=== PATIENT | female | born 1965 | race Caucasian/White ===

== ENCOUNTER → 2020-04-22 | Outpatient (CLI) | payer BC ==
[~2020-04-22] MED LIST: ADVIL PO; B-1100 M1 PO; CALGLU500 PO; CHLO25 PO; ECHINACEA PO; EMERGEN C PO; IBUP400 PO; OMEGA-3 PO; SPIR25 PO; VITAMIN PO; [UNRECOGNIZED DRUG - OTHER] PO; [UNRECOGNIZED DRUG - OTHER] PO
[2020-04-22 15:25] LABS: BASOPHILS ABSOLUTE AUTO 0.06 K/mm3 (0.00-0.23); BASOPHILS PERCENT AUTO 1 % (0-2); EOSINOPHILS ABSOLUTE AUTO 0.08 K/mm3 (0.00-0.68); EOSINOPHILS PERCENT AUTO 2 % (0-6); Hematocrit 33.2 % (33.0-51.0); Hemoglobin 11.3 g/dL (11.5-16.0); IMMATURE GRAN ABSOLUTE AUTO 0.02 K/mm3 (0.00-0.10); IMMATURE GRAN PERCENT AUTO 0 % (0-1); LYMPHOCYTES ABSOLUTE AUTO 0.57 K/mm3 (0.84-5.20); LYMPHOCYTES PERCENT AUTO 12 % (21-46); MONOCYTES ABSOLUTE AUTO 0.41 K/mm3 (0.16-1.47); MONOCYTES PERCENT AUTO 9 % (4-13); Mean Corpuscular HGB 31.9 pg (26.0-34.0); Mean Corpuscular Volume 94 fL (80-100); Mean Platelet Volume 10.5 fL (9.1-12.4); NEUTROPHILS ABSOLUTE AUTO 3.45 K/mm3 (1.96-9.15); NEUTROPHILS PERCENT AUTO 75 % (41-73); Platelet Count 112 K/mm3 (150-400); RDW Coefficient Variation 15.9 % (11.7-14.2); RDW Standard Deviation 54.8 fL (35.1-46.3); Red Blood Cell Count 3.54 M/mm3 (3.80-5.20); White Blood Cell Count 4.59 K/mm3 (4.00-11.30)
[2020-04-22 16:05] LABS: Alanine Aminotransfer (ALT/SGP 61 U/L (12-78); Albumin, Blood 2.7 g/dL (3.4-5.0); Albumin/Globulin Ratio 0.6 (0.8-1.8); Alk Phos 350 U/L (50-136); Anion Gap 6 mmol/L (6-16); Aspartate Aminotrans (AST/SGOT 372 U/L (12-37); Bilirubin, Total 4.3 mg/dL (0.1-1.0); Blood Urea Nitrogen 2 mg/dL (8-24); Bun/Creatinine Ratio 6.9 (12.0-20.0); CO2, Blood 28 mmol/L (21-32); Calcium, Blood 8.2 mg/dL (8.5-10.1); Chloride, Blood 96 mmol/L (98-108); Creatinine, Blood 0.29 mg/dL (0.40-1.00); Globulin, Blood 4.8 g/dL (2.2-4.0); Glomerular Filtration Rate >60 (60-); Glucose, Blood 80 mg/dL (70-99); Potassium, Blood 3.8 mmol/L (3.5-5.5); Sodium, Blood 130 mmol/L (136-145); Total Protein, Blood 7.5 g/dL (6.4-8.2)
== END | disposition home or self-care (01) ==
LOC: LAB 09:50 → LAB SHORT 09:50
PROVIDERS: Hospitalist
DX: K70.31 Alcoholic cirrhosis of liver with ascites (principal)
CPT/HCPCS: 80053; 85025

== ENCOUNTER 2020-05-09 14:23 | Emergency (ER) | payer BC ==
[~2020-05-09] VITALS: Ht 160 cm; Wt 53.5 kg
[~2020-05-09 14:23] MED LIST changes: -B-1100 M1 PO; -CHLO25 PO; -SPIR25 PO
== END 2020-05-09 16:19 | disposition home or self-care (01) ==
LOC: ER 14:23
DX: R18.8 Other ascites (principal); T81.89XA Other complications of procedures, not elsewhere classified, initial encounter; F17.200 Nicotine dependence, unspecified, uncomplicated
CPT/HCPCS: 99283

== ENCOUNTER 2020-06-01 11:17 | Inpatient (IN) | payer BC ==
[~2020-06-01] VITALS: Ht 160 cm; Wt 61.0 kg
[2020-06-01 11:53] LABS: BASOPHILS ABSOLUTE AUTO 0.01 K/mm3 (0.00-0.23); BASOPHILS PERCENT AUTO 0 % (0-2); EOSINOPHILS ABSOLUTE AUTO 0.01 K/mm3 (0.00-0.68); EOSINOPHILS PERCENT AUTO 0 % (0-6); Hematocrit 34.3 % (33.0-51.0); Hemoglobin 12.6 g/dL (11.5-16.0); IMMATURE GRAN ABSOLUTE AUTO 0.04 K/mm3 (0.00-0.10); IMMATURE GRAN PERCENT AUTO 0 % (0-1); LYMPHOCYTES ABSOLUTE AUTO 0.85 K/mm3 (0.84-5.20); LYMPHOCYTES PERCENT AUTO 9 % (21-46); MONOCYTES ABSOLUTE AUTO 0.75 K/mm3 (0.16-1.47); MONOCYTES PERCENT AUTO 8 % (4-13); Mean Corpuscular HGB 33.2 pg (26.0-34.0); Mean Corpuscular HGB Conc 36.7 g/dL (31.5-36.5); Mean Corpuscular Volume 91 fL (80-100); Mean Platelet Volume 8.9 fL (9.1-12.4); NEUTROPHILS ABSOLUTE AUTO 7.38 K/mm3 (1.96-9.15); NEUTROPHILS PERCENT AUTO 82 % (41-73); Platelet Count 268 K/mm3 (150-400); RDW Coefficient Variation 14.2 % (11.7-14.2); RDW Standard Deviation 46.6 fL (35.1-46.3); Red Blood Cell Count 3.79 M/mm3 (3.80-5.20); White Blood Cell Count 9.04 K/mm3 (4.00-11.30)
[2020-06-01 12:09] LABS: Alanine Aminotransfer (ALT/SGP 44 U/L (12-78); Albumin, Blood 2.4 g/dL (3.4-5.0); Albumin/Globulin Ratio 0.4 (0.8-1.8); Alk Phos 304 U/L (50-136); Anion Gap 13 mmol/L (6-16); Aspartate Aminotrans (AST/SGOT 221 U/L (12-37); Bilirubin, Total 4.8 mg/dL (0.1-1.0); Blood Urea Nitrogen 3 mg/dL (8-24); Bun/Creatinine Ratio 9.1 (12.0-20.0); CO2, Blood 19 mmol/L (21-32); Calcium, Blood 7.9 mg/dL (8.5-10.1); Chloride, Blood 81 mmol/L (98-108); Creatinine, Blood 0.33 mg/dL (0.40-1.00); Globulin, Blood 5.8 g/dL (2.2-4.0); Glomerular Filtration Rate >60 (60-); Glucose, Blood 63 mg/dL (70-99); Potassium, Blood 4.7 mmol/L (3.5-5.5); Sodium, Blood 113 mmol/L (136-145); Total Protein, Blood 8.2 g/dL (6.4-8.2)
[2020-06-01 12:32] LABS: Magnesium, Blood 1.9 mg/dL (1.6-2.4)
[2020-06-01 12:35] LABS: International Normalized Ratio 1.19; Prothrombin Time Results 12.6 Sec (9.7-11.5)
[2020-06-01 15:10] LABS: Base Excess Venous -3.7 mmol/L; Bicarbonate Venous 21.4 mmol/L (24.0-30.0); PCO2 Venous 32.5 mmHg (38-42); pH Blood Venous 7.42 (7.34-7.37)
[2020-06-01] MEDS ORDERED: SPIR25 PO (15:31)
[2020-06-01] MEDS ORDERED: CHLO25 PO (15:32)
[2020-06-01 17:07] LABS: Magnesium, Blood 2.4 mg/dL (1.6-2.4)
[2020-06-01 17:11] LABS: Potassium, Blood 4.8 mmol/L (3.5-5.5)
[2020-06-01 17:56] LABS: Source, Urine Catheter
[2020-06-01 18:01] LABS: Appearance, Urine Hazy (Clear); Blood, Urine Neg (Neg); Color, Urine Yellow (P-Yellow); Glucose Qualitative, Urine Neg (Neg); Ketones, Urine 3+ (Neg); Leukocyte Esterase, Urine Neg (Neg); Nitrite, Urine Neg (Neg); Protein, Urine 1+ (Neg); Urobilinogen, Urine 3+ (Normal)
[2020-06-01 18:14] LABS: Hematocrit 29.4 % (33.0-51.0)
[2020-06-01 18:14] LABS: Bilirubin, Urine 1+ (Neg)
[2020-06-01 18:20] LABS: White Blood Cells, Urine 0-2 /hpf (0-5)
[2020-06-01 18:21] LABS: Bacteria Few /hpf; Hyaline Casts 0-2 /lpf (0-2); Mucus Mod (0-Heavy); Red Blood Cells, Urine 0-2 /hpf (0-2); Squamous Epithelial Cells Few /hpf (Few)
[2020-06-01 18:22] LABS: U Amphetamine Screen Not Detected; U Barbituate Screen Not Detected; U Benzodiazapine Screen DETECTED; U Buprenorphine Screen Not Detected; U Cannabinoids Screen Not Detected; U Cocaine Screen Not Detected; U Methadone Screen Not Detected; U Methamphetamine Screen Not Detected; U Opiates Screen Not Detected; U Oxycodone Screen Not Detected; U Phencyclidine Screen Not Detected; U Propoxyphene Screen Not Detected
--- NOTE | 2020-06-01 18:52 | NUR ---
SHIFT SUMMARY RECIEVED PT FROM ED AT 1600, PT SEEMS SLIGHTLY OFF. SHE CAN ANSWER ALL ORIENTATION QUESTIONS BUT WILL MAKE SOME BIZARRE STATEMENTS. SODIUM LEVEL IS 112, AST IS 221 AND BNP IS 399. PT'S BLE +4 EDEMA, ABDOMEN IS DISTENDED AND TAUGHT. VSS, ROOM AIR AND RESTING COMFORTABLE IN BED WITH CALL LIGHT IN REACH.
--- NOTE | 2020-06-01 19:12 | NUR ---
ASSUMPTION OF CARE RECEIVED REPORT FROM BRADEN RN, ASSUMED CARE OF PATIENT. PATIENT SITTING UP IN BED ALERT, ANSWERS ORIENTATION QUESTIONS APPROPRIATELY BUT IS FORGETFUL AND NEEDS FREQUENT REMINDERS OF SITATUION. DENIED DISCOMFORTS OR NEEDS, VITALS STABLE. CALL LIGHT IN REACH.
[2020-06-01 22:22] LABS: Potassium, Blood 4.1 mmol/L (3.5-5.5)
--- NOTE | 2020-06-02 | NUR ---
REASSESSMENT NO ACUTE CHANGES FROM INITIAL ASSESSMENT. PATIENT DENIES NEEDS OR DISCOMFORTS. CALL LIGHT IN REACH.
--- NOTE | 2020-06-02 04:00 | NUR ---
REASSSESSMENT NO ACUTE CHANGES FROM PREVIOUS ASSESSMENT. VITALS STABLE. PATIENT DENIES NEEDS OR DISCOMFORTS. CALL LIGHT IN REACH.
[2020-06-02 04:15] LABS: BASOPHILS ABSOLUTE AUTO 0.01 K/mm3 (0.00-0.23); BASOPHILS PERCENT AUTO 0 % (0-2); EOSINOPHILS PERCENT AUTO 0 % (0-6); Hematocrit 27.2 % (33.0-51.0); Hemoglobin 10.2 g/dL (11.5-16.0); IMMATURE GRAN ABSOLUTE AUTO 0.04 K/mm3 (0.00-0.10); IMMATURE GRAN PERCENT AUTO 1 % (0-1); LYMPHOCYTES ABSOLUTE AUTO 0.68 K/mm3 (0.84-5.20); LYMPHOCYTES PERCENT AUTO 9 % (21-46); MONOCYTES ABSOLUTE AUTO 0.75 K/mm3 (0.16-1.47); MONOCYTES PERCENT AUTO 10 % (4-13); Mean Corpuscular HGB 33.3 pg (26.0-34.0); Mean Corpuscular HGB Conc 37.5 g/dL (31.5-36.5); Mean Corpuscular Volume 89 fL (80-100); Mean Platelet Volume 8.8 fL (9.1-12.4); NEUTROPHILS ABSOLUTE AUTO 6.35 K/mm3 (1.96-9.15); NEUTROPHILS PERCENT AUTO 81 % (41-73); Platelet Count 190 K/mm3 (150-400); RDW Coefficient Variation 13.8 % (11.7-14.2); RDW Standard Deviation 44.5 fL (35.1-46.3); Red Blood Cell Count 3.06 M/mm3 (3.80-5.20); White Blood Cell Count 7.83 K/mm3 (4.00-11.30)
[2020-06-02 04:53] LABS: Magnesium, Blood 1.8 mg/dL (1.6-2.4)
[2020-06-02 04:58] LABS: Alanine Aminotransfer (ALT/SGP 36 U/L (12-78); Albumin, Blood 1.9 g/dL (3.4-5.0); Albumin/Globulin Ratio 0.4 (0.8-1.8); Alk Phos 231 U/L (50-136); Anion Gap 14 mmol/L (6-16); Aspartate Aminotrans (AST/SGOT 176 U/L (12-37); Blood Urea Nitrogen 3 mg/dL (8-24); Bun/Creatinine Ratio 7.6 (12.0-20.0); CO2, Blood 20 mmol/L (21-32); Calcium, Blood 7.2 mg/dL (8.5-10.1); Chloride, Blood 84 mmol/L (98-108); Globulin, Blood 4.7 g/dL (2.2-4.0); Glomerular Filtration Rate >60 (60-); Glucose, Blood 56 mg/dL (70-99); Phosphorus, Blood 3.2 mg/dL (2.5-4.9); Potassium, Blood 3.8 mmol/L (3.5-5.5); Sodium, Blood 118 mmol/L (136-145); Total Protein, Blood 6.6 g/dL (6.4-8.2)
--- NOTE | 2020-06-02 06:03 | NUR ---
SHIFT SUMMARY NO ACUTE EVENTS OVER NIGHT. SODIUM TRENDED AND REPORTED TO DR. HOLLIS. NEW ORDERS RECEIVED AFTER AM SODIUM RESULT. DR. HOLLIS TO PATIENT'S BEDSIDE GIVING VERBAL ORDERS FOR MEDICATIONS AND LABS. PATIENT REMAINS A/O. VITALS STABLE. URINE OUTPUT ADEQUATE. PARACENTESIS SCHEDULED FOR TODAY. PATIENT EATING A SNACK PER MORNING GLUCOSE RESULT ON LAB DRAW. WILL CONTINUE TO MONITOR AND REPORT TO ONCOMING RN.
--- NOTE | 2020-06-02 07:14 | NUR ---
ASSUMED CARE PT RESTING IN BED WITH CALL LIGHT IN REACH. VSS OVERNIGHT, 1L FLUID RESTRICTION CONTINUES, SODIIUM 118. RECHECK DUE AT [address] HOLLIS WITH THE RESULTS. PARACENTESIS TO BE DONE THIS MORNING, DR HOLLIS ALREADY ROUNDED AND SPOKE TO THE PT.
[2020-06-02 12:34] LABS: Lactate Dehydrogenase, Body Fl 67 U/L
[2020-06-02 12:37] LABS: Potassium, Blood 3.6 mmol/L (3.5-5.5)
--- NOTE | 2020-06-02 14:46 | NUR ---
PT PUT ON O2 WHEN SHE IS SLEEPING. OXYGEN LEVEL DROPS TO HIGH 90'S. 2L NC PLACED AND THAT BRINGS HER SATS UP TO ACCEPTABLE LEVELS
--- NOTE | 2020-06-02 18:16 | NUR ---
SHIFT SUMMARY VSS THROUGHOUT SHIFT, AFBRILE. REQUIRING O2 WHEN SHE SLEEPS, SLIGHT JENNIFER. 4.5 LITERS TAKEN OFF WITH PARACENTESIS. HX OF LEAKING FROM SITE SO AN ABSORBANT PAD IS IN PLACE. GARCIA STILL IN PLACE WITH GOOD URINE OUTPUT. BUMEX AND POTASSIUM D/C'D AFTER SODIUM LEVEL CAME UP TO 127. LAST SODIUM 121. PT WAS ON 3% SALINE DRIP @ 30 FOR A BREIF TIME, BUT THAT WAS ALSO D/C'D. PT HAS TRANSFER ORDERS, WAITING FOR A BED. DR. MURPHY CAME AN UPDATED THE FLOR.
--- NOTE | 2020-06-02 18:42 | NUR ---
Spiritual care note: Sonia was welcoming of visit. She did not mention her liver disease. She admitted to me that she takes her prescibed medication once every three days instead of daily. She also states that she stopped taking all vitamins because "They make my fingers numb." She spoke mostly about her job at [employer]. She allowed me to pray for her and denied any concerns about her health. She plans on getting stronger and returning home to her regular routine. I will remain available.
--- NOTE | 2020-06-02 19:17 | NUR ---
ASSUMPTION OF CARE RECEIVED REPORT FROM BRADEN OLVERA. ASSUMED CARE OF PATIENT. WILL REVIEW ORDERS AND TREAT PRESCRIBED.
[2020-06-02 19:58] LABS: Automated BF WBC Count 0.068 K/mm3 (0-999); Body Fluid WBC Count 68 /mm3 (0-999)
[2020-06-02 19:59] LABS: Appearance, Body Fluid Clear (Clear); Color, Body Fluid Yellow (None-Yellow)
[2020-06-02 20:16] LABS: Albumin, Body Fluid 0.7 g/dL
[2020-06-02 20:17] LABS: Protein, Body Fluid 1.7 g/dL
[2020-06-02 20:22] LABS: Glucose, Body Fluid 82 mg/dL
[2020-06-02 20:27] LABS: RBC Count, Body Fluid 29 /mm3 (0-0)
[2020-06-02 20:31] LABS: Total Cell Count, Body Fluid 100
--- NOTE | 2020-06-02 21:23 | NUR ---
LAB REPORTED PATIENT'S SODIUM TO DR. HOLLIS. NO NEW ORDERS AT THIS TIME.
--- NOTE | 2020-06-03 | NUR ---
REASSESSMENT NO ACUTE CHANGES FROM INITIAL ASSESSMENT. PATIENT A/O, DENIES NEEDS OR DISCOMFORTS. VITALS STABLE. CALL LIGHT IN REACH.
[2020-06-03 03:58] LABS: Hematocrit 26.8 % (33.0-51.0); Hemoglobin 9.7 g/dL (11.5-16.0)
--- NOTE | 2020-06-03 04:00 | NUR ---
REASSESSMENT NO ACUTE CHANGES FROM PREVIOUS ASSESSMENT. PATIENT A/O. VITALS STABLE. DENIES PAIN OR OTHER DISCOMFORTS. CALL LIGHT IN REACH.
[2020-06-03 04:23] LABS: Albumin, Blood 1.7 g/dL (3.4-5.0); Anion Gap 7 mmol/L (6-16); Blood Urea Nitrogen 7 mg/dL (8-24); Bun/Creatinine Ratio 16.5 (12.0-20.0); CO2, Blood 29 mmol/L (21-32); Calcium, Blood 7.4 mg/dL (8.5-10.1); Chloride, Blood 91 mmol/L (98-108); Creatinine, Blood 0.42 mg/dL (0.40-1.00); Free Thyroxine 1.01 ng/dL (0.70-1.60); Glomerular Filtration Rate >60 (60-); Glucose, Blood 88 mg/dL (70-99); Magnesium, Blood 1.6 mg/dL (1.6-2.4); Phosphorus, Blood 1.9 mg/dL (2.5-4.9); Potassium, Blood 3.1 mmol/L (3.5-5.5); Sodium, Blood 127 mmol/L (136-145); Triiodothyronine, Free 1.03 pg/mL (2.18-3.98)
--- NOTE | 2020-06-03 05:24 | NUR ---
LABS DR. HOLLIS TO BEDSIDE, REPORTED LABS. RECEIVED NEW ORDERS. WILL TREAT PRESCRIBED.
--- NOTE | 2020-06-03 05:48 | NUR ---
SHIFT SUMMARY PATIENT RESTED COMFORTABLY THROUGH NIGHT. NO ACUTE CHANGES. VITALS REMAINED STABLE ON 2L 02 VIA NC. PATIENT A/O. EDEMA IMPROVED, AND ABD DISTENTION HAS DECREASED. LABS REPORT TO DR. HOLLIS PREVIOUSLY CHARTED. CONTINUE TO AWAIT MEDICATIONS FROM PHARMACY TO REPLACE POTASSIUM AND PHOS. WILL CONTINUE TO MONITOR AND REPORT TO ONCOMING RN.
--- NOTE | 2020-06-03 07:50 | NUR ---
ASSUMED CARE: REPORT RECEIVED FROM BETTY Garcia RN. ASSUMED CARE OF THIS PT AT APPROX 0700. ON ASSESSMENT, THE PT IS RESTING QUIETLY. SHE AWAKENS EASILY TO VERBAL STIMULUS & IS ALERT/ORIENTED x4 AT THAT TIME. LS ARE CLEAR T/O, PT ON 2L NC WHILE SLEEPING W/ O2 SATS > 92%. MONITOR SHOWS SR-ST W/ HR 90-100s, HYPOTENSIVE W/ SBP 90s AT TIMES, PT ASYMPTOMATIC. PT's ABDOMEN IS FIRM & DISTENDED, BT HYPERACTIVE. PLAN IS FOR PARACENTESIS AGAIN TODAY. SHE IS TOLERATING PO INTAKE WELL. FLUID RESTRICTION 1000 ML/DAY. GARCIA PATENT/ DRAINING YELLOW URINE. SKIN OVERALL FRAGILE, INTACT - SEE WOUND DOC. Q2H REPOSITIONING TO MAINTAIN SKIN INTEGRITY. WILL CONTINUE TO MONITOR & UPDATE NEEDED.
--- NOTE | 2020-06-03 08:15 | NUR ---
DR MURPHY: PROVIDER AT BEDSIDE TO EVAL PT. SHE HAS ORDERED ALBUMIN R/T PARACENTESIS. SHE WOULD LIKE MANAGER [place] TO SEE THIS PT & DETERMINE IF OUTPATIENT TX FOR ETOH ABUSE WOULD BE AN OPTION FOR THIS PT. NO OTHER CHANGES AT THIS TIME.
--- NOTE | 2020-06-03 16:28 | NUR ---
DR MURPHY UPDATE: CALL TO PROVIDER REGARDING RUMORED PARACENTESIS FOR THIS PT. IT WAS DISCUSSED THIS AM THAT THE PT WOULD BE HAVING ANOTHER US GUIDED PARACENTESIS PROCEDURE TODAY BUT ON FURTHER CHART EVALUATION, THIS RN HAS BEEN UNABLE TO FIND AN ORDER OR MENTION OF POSSIBLE PARACENTESIS BY PROVIDERS. DR MURPHY CALLED & NOTIFIED OF THIS. SHE STS THAT SHE HAD NOT ORDERED A PARACENTESIS BUT FEELS THE BEST COURSE OF ACTION WOULD BE TO REEVALUATE THE NEED FOR THIS PROCEDURE TOMORROW, THE PT HAD A PARACENTESIS YESTERDAY W/ APPROX 4L TAKEN OFF.
--- NOTE | 2020-06-03 18:13 | NUR ---
SHIFT SUMMARY: NO ACUTE CHANGES SINCE PRIOR UPDATES. PT REMAINS A&O, PLEASANT & COOPERATIVE. LS CLEAR, PT ON RA W/ O2 SATS > 92%. MONITOR SHOWS ST W/ HR 110s, BP STABLE. PT IS TOLERATING PO INTAKE WELL, MEDIUM BROWN BM x1 THIS SHIFT. PT HAS C/O ABD BECOMING MORE "TIGHT" THIS AFTERNOON - SEE PRIOR NOTE REGARDING PARACENTESIS. TEMP GARCIA PATENT/ DRAINING CLEAR YELLOW URINE - SEE I&O. SKIN CONDITION OVERALL UNCHANGED, PT REPOSITIONS SELF IN BED, STAFF ASSIST PRN OR Q2H TO MAINTAIN SKIN INTEGRITY. WILL CONTINUE TO MONITOR & REPORT OFF TO ONCOMING RN.
--- NOTE | 2020-06-03 19:15 | NUR ---
ASSUMPTION OF CARE RECEIVED REPORT FROM SORAYA OLVERA. ASSUMED CARE OF PATIENT. PATIENT A/O, SITTING UP IN BED, DENIES NEEDS OR DISCOMFORTS. VITALS STABLE, ON RA. GARCIA CATHETER PATENT AND DRAINING. POWER GLIDE TO RUE SALINE LOCKED. WILL REVIEW ORDERS AND TREAT PRESCRIBED.
--- NOTE | 2020-06-03 22:58 | NUR ---
LIBRIUM PATIENT USING CALL LIGHT WITH C/O HEADACHE, ASKING QUESTIONS "WHAT IS WRONG WITH MY STOMACH" AND "WHAT TIME IS MY APPOINTMENT, WHY AM I WAITING". CONTINUED TO ORIENT PATIENT TO MEDICAL STATUS. 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 SLURRED SPEECH NOTED, LIBRIUM 25 GIVEN. WILL MONITOR EFFECTS. BED ALARM ON, CALL LIGHT IN REACH.
--- NOTE | 2020-06-04 | NUR ---
REASSESSMENT NO ACUTE CHANGES FROM PREVIOUS ASSESSMENT. PATIENT WITH EYES CLOSED, NO S/S OF DISTRESS. VITALS STABLE ON 2L 02 VIA NC. SATS 97%. GARCIA REMAINS PATENT AND DRAINING. BED ALARM REMAINS ON, CALL LIGHT IN REACH.
--- NOTE | 2020-06-04 04:00 | NUR ---
REASSESSMENT NO ACUTE CHANGES FROM PREVIOUS ASSESSMENT. VITALS STABLE, PATIENT ORIENTED AT THIS TIME. CALL LIGHT IN REACH.
[2020-06-04 06:01] LABS: Hematocrit 27.3 % (33.0-51.0); Hemoglobin 9.7 g/dL (11.5-16.0)
--- NOTE | 2020-06-04 06:27 | NUR ---
SHIFT SUMMARY NO ACUTE EVENTS OVER NIGHT. PATIENT WITH INTERMITTENT CONFUSION, EASILY REORIENTED. VITALS REAMAINED STABLE, PATIENT TURNING SELF FOR COMFORT. DR. HOLLIS TO ROOM, LABS STILL PENDING. WILL NOTIFY HIM OF RESULTS.
[2020-06-04 06:33] LABS: Magnesium, Blood 1.7 mg/dL (1.6-2.4)
[2020-06-04 06:34] LABS: Albumin, Blood 2.1 g/dL (3.4-5.0); Anion Gap 6 mmol/L (6-16); Blood Urea Nitrogen 6 mg/dL (8-24); Bun/Creatinine Ratio 18.1 (12.0-20.0); CO2, Blood 30 mmol/L (21-32); Calcium, Blood 7.5 mg/dL (8.5-10.1); Chloride, Blood 93 mmol/L (98-108); Creatinine, Blood 0.33 mg/dL (0.40-1.00); Glomerular Filtration Rate >60 (60-); Glucose, Blood 80 mg/dL (70-99); Phosphorus, Blood 1.8 mg/dL (2.5-4.9); Potassium, Blood 3.5 mmol/L (3.5-5.5); Sodium, Blood 129 mmol/L (136-145)
--- NOTE | 2020-06-04 09:35 | NUR ---
ASSUMED CARE / DR MURPHY: REPORT RECEIVED FROM BETTY Garcia RN. ASSUMED CARE OF THIS PT AT APPROX 0700. ON ASSESSMENT, THE PT IS AWAKE, A&O. SHE DENIES A HEADACHE BUT DOES APPEAR TO BE MORE RESTLESS THAN YESTERDAY. 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 LS ARE CLEAR T/O, PT ON 2L NC WHILE SLEEPING, ON RA WHILE AWAKE W/ O2 SATS > 92%. MONITOR SHOWS ST W/ HR 100-110s, HYPOTENSION AT TIMES W/ SBP 90s, PT ASYMPTOMATIC. ABD IS FIRM, DISTENDED. PT GOING TO IMAGING FOR US GUIDED PARACENTESIS VIA WC THIS AM. GARCIA PATENT/ DRAINING YELLOW URINE. SKIN CONDITION OVERALL FRAGILE W/ VARIOUS AREAS OF ECCHYMOSIS & SKIN TEARS - SEE ASSESSMENT. DR MURPHY HAS SEEN THE PT THIS AM & ORDERS HAVE BEEN PLACED FOR US GUIDED PARACENTESIS & ALBUMIN PER PHARMACY. PT EVAL & TX TO BE COMPLETED & THE PROVIDER WOULD LIKE THE PT OOB TODAY. WILL CONTINUE TO MONITOR & UPDATE NEEDED.
--- NOTE | 2020-06-04 17:15 | NUR ---
TRANSFER TO MEDICAL FLOOR: REPORT HAS BEEN GIVEN TO GANGA Garcia RN TO ASSUME CARE. PT HAS TX TO ROOM 362 VIA WC BY JANETH HOFFMANN, AT APPROX 1705. PT's CHART, BELONGINGS & DINNER TRAY HAVE ALL BEEN TRANSFERRED W/ HER. THIS RN HAS CALLED HER , FLOR, TO UPDATE HIM ON THE PT's TRANSFER & ROOM ASSIGNMENT.
--- NOTE | 2020-06-04 17:26 | NUR ---
SHIFT SUMMARY ICU TRANSFER AT DINNER TIME. PATIENT SETTLED INTO BED AND EATING DINNER. PATIENT DENIES PAIN, NAUSEA, AND SHORTNESS OF BREATH. REPORTS MILD TENDERNESS OF RIGHT ABDOMEN AT PARACENTESIS SITE. TRANSFERING SBA TO . BED ALRAM ON.
--- NOTE | 2020-06-05 04:04 | NUR ---
SHIFT SUMMARY ADMITTED FOR AMS/HYPONATREMIA. FULL CODE. PLAN IS FOR DC, HOPEFUL FOR [facility] ENROLLMENT TO FOLLOW. ETOH, CIRRHOSIS, ASCITES (PARACENTESIS PERFORMED). GARCIA IN PLACE, 1000 ML/DAY FLUID RESTRICTION. 2 LPM O2 AT NIGHT HERE, RA AT HOME. TELEMETRY: NSR @ 94 BPM. NO NEW CONCERNS THIS SHIFT. MORNING LABS HAVE BEEN DRAWN.
[2020-06-05 04:27] LABS: BASOPHILS ABSOLUTE AUTO 0.06 K/mm3 (0.00-0.23); BASOPHILS PERCENT AUTO 1 % (0-2); EOSINOPHILS ABSOLUTE AUTO 0.23 K/mm3 (0.00-0.68); EOSINOPHILS PERCENT AUTO 4 % (0-6); Hematocrit 27.8 % (33.0-51.0); Hemoglobin 9.9 g/dL (11.5-16.0); IMMATURE GRAN ABSOLUTE AUTO 0.05 K/mm3 (0.00-0.10); IMMATURE GRAN PERCENT AUTO 1 % (0-1); LYMPHOCYTES ABSOLUTE AUTO 1.01 K/mm3 (0.84-5.20); LYMPHOCYTES PERCENT AUTO 18 % (21-46); MONOCYTES ABSOLUTE AUTO 0.69 K/mm3 (0.16-1.47); MONOCYTES PERCENT AUTO 12 % (4-13); Mean Corpuscular HGB 33.3 pg (26.0-34.0); Mean Corpuscular HGB Conc 35.6 g/dL (31.5-36.5); Mean Corpuscular Volume 94 fL (80-100); Mean Platelet Volume 9.2 fL (9.1-12.4); NEUTROPHILS ABSOLUTE AUTO 3.52 K/mm3 (1.96-9.15); NEUTROPHILS PERCENT AUTO 63 % (41-73); Platelet Count 135 K/mm3 (150-400); RDW Coefficient Variation 15.7 % (11.7-14.2); Red Blood Cell Count 2.97 M/mm3 (3.80-5.20); White Blood Cell Count 5.56 K/mm3 (4.00-11.30)
[2020-06-05 04:45] LABS: Albumin, Blood 2.2 g/dL (3.4-5.0); Anion Gap 5 mmol/L (6-16); Blood Urea Nitrogen 4 mg/dL (8-24); Bun/Creatinine Ratio 11.3 (12.0-20.0); CO2, Blood 32 mmol/L (21-32); Calcium, Blood 7.7 mg/dL (8.5-10.1); Chloride, Blood 97 mmol/L (98-108); Creatinine, Blood 0.35 mg/dL (0.40-1.00); Glomerular Filtration Rate >60 (60-); Glucose, Blood 83 mg/dL (70-99); Magnesium, Blood 1.8 mg/dL (1.6-2.4); Potassium, Blood 3.2 mmol/L (3.5-5.5); Sodium, Blood 134 mmol/L (136-145)
[2020-06-05] MEDS ORDERED: B-1100 M1 PO (11:59)
--- NOTE | 2020-06-05 12:55 | NUR ---
DC SUMMARY PT DISCHARGING TO HOME WITH . PT AxOx4, COOPERATIVE WITH CARE. GROSS ASCITES NOTED IN ABDOMEN. PT DENIES PAIN. ADAPT IN TO SEE PATIENT TODAY ABOUT DC'ING TO REHAB. PT DECLINED. STATES SHE WILL FOLLOW UP WITH ADAPT AFTER SHE GETS HOME. PT VITALS REVIEWED. DISCHARGE INSTRUCTIONS DISCUSSED WITH PATIENT, INCLUDING DC MEDICATIONS AND FOLLOW UP APPOINTMENTS, PATIENT EDUCATION AND RESOURCES FOR ETOH USE. PT VERBALIZES UNDERSTANDING. PT SAFELY ESCORTED OUT VIA WHEELCHAIR WITH IT INFRASTRUCTURE CONSULTANT AND .
--- NOTE | 2020-06-06 20:23 | NUR ---
REVIEWED PT'S INFO TO CALL AND LET HER KNOW THAT 2 HOME MEDS WERE LEFT BEHIND. PT DID NOT ANSWER THE NUMBER LISTED, LEFT MESSAGE, CALLED AND SPOKE TO HER NEXT OF KIN LISTED, HER FLOR, SPOKE WITH HIM AND LET HIM KNOW.
== END 2020-06-05 12:57 | disposition home or self-care (01) | DRG 433 ==
LOC: ER 11:17 → ICUE 14:52 → ICUW 14:52 → ICUE 16:11 → MEDS 06-04 17:15
PROVIDERS: Emergency Medicine; Internal Medicine; Internal Medicine Nephrology; Nurse Practitioner Acute Care; ADMIT Internal Medicine
PROC: 0W9G3ZZ Drainage of Peritoneal Cavity, Percutaneous Approach (ICD-10-PCS; principal; 2020-06-02)
PROC: 0W9G3ZZ Drainage of Peritoneal Cavity, Percutaneous Approach (ICD-10-PCS; 2020-06-04)
DX: K70.31 Alcoholic cirrhosis of liver with ascites (principal); E87.1 Hypo-osmolality and hyponatremia; K62.5 Hemorrhage of anus and rectum; F10.20 Alcohol dependence, uncomplicated; E87.6 Hypokalemia; F10.229 Alcohol dependence with intoxication, unspecified; W01.10XA Fall on same level from slipping, tripping and stumbling with subsequent striking against unspecified object, initial encounter; S09.90XA Unspecified injury of head, initial encounter; E83.39 Other disorders of phosphorus metabolism; Z85.3 Personal history of malignant neoplasm of breast; Z98.890 Other specified postprocedural states; F17.200 Nicotine dependence, unspecified, uncomplicated; D64.9 Anemia, unspecified; N18.2 Chronic kidney disease, stage 2 (mild); E88.09 Other disorders of plasma-protein metabolism, not elsewhere classified
CPT/HCPCS: 36415; 49083; 51703; 70450; 71046; 80053; 80069; 81001; 82042; 82272; 82530; 82533; 82570; 82803; 82945; 83615; 83690; 83735; 83880; 83930; 84100; 84132; 84157; 84295; 84300; 84439; 84443; 84481; 84550; 85014; 85018; 85025; 85610; 85730; 87070; 87205; 89051; 93005; 93010; 96374; 97110; 97162; 99285-25; A9270; C1751; G0008; G0480; J2405; J3475; J3480; J7060; P9041; P9046

== ENCOUNTER 2020-06-17 14:46 | Day surgery (SDC) | payer BC ==
[~2020-06-17 14:46] MED LIST changes: +B-1100 M1 PO; +CHLO25 PO; +SPIR25 PO
== END 2020-06-17 23:17 | disposition home or self-care (01) ==
LOC: US 14:46 → SDS 14:46 → US 15:00 → EDSTATUS 15:00 → US 23:17
DX: K70.31 Alcoholic cirrhosis of liver with ascites (principal)
CPT/HCPCS: 49083

== ENCOUNTER 2020-06-20 09:53 | Emergency (ER) | payer BC ==
[~2020-06-20] VITALS: Ht 160 cm; Wt 59.0 kg
[2020-06-20 10:42] LABS: BASOPHILS ABSOLUTE AUTO 0.08 K/mm3 (0.00-0.23); BASOPHILS PERCENT AUTO 1 % (0-2); EOSINOPHILS PERCENT AUTO 4 % (0-6); Hematocrit 34.6 % (33.0-51.0); Hemoglobin 11.5 g/dL (11.5-16.0); IMMATURE GRAN ABSOLUTE AUTO 0.02 K/mm3 (0.00-0.10); IMMATURE GRAN PERCENT AUTO 0 % (0-1); LYMPHOCYTES ABSOLUTE AUTO 1.02 K/mm3 (0.84-5.20); LYMPHOCYTES PERCENT AUTO 18 % (21-46); MONOCYTES ABSOLUTE AUTO 0.82 K/mm3 (0.16-1.47); MONOCYTES PERCENT AUTO 14 % (4-13); Mean Corpuscular HGB 32.7 pg (26.0-34.0); Mean Corpuscular HGB Conc 33.2 g/dL (31.5-36.5); Mean Corpuscular Volume 98 fL (80-100); Mean Platelet Volume 8.9 fL (9.1-12.4); NEUTROPHILS ABSOLUTE AUTO 3.55 K/mm3 (1.96-9.15); NEUTROPHILS PERCENT AUTO 62 % (41-73); Platelet Count 323 K/mm3 (150-400); RDW Coefficient Variation 13.9 % (11.7-14.2); RDW Standard Deviation 50.4 fL (35.1-46.3); Red Blood Cell Count 3.52 M/mm3 (3.80-5.20); White Blood Cell Count 5.69 K/mm3 (4.00-11.30)
[2020-06-20 10:56] LABS: International Normalized Ratio 1.09; Prothrombin Time Results 11.6 Sec (9.7-11.5)
[2020-06-20 11:06] LABS: Alanine Aminotransfer (ALT/SGP 28 U/L (12-78); Albumin, Blood 2.1 g/dL (3.4-5.0); Albumin/Globulin Ratio 0.4 (0.8-1.8); Alk Phos 88 U/L (50-136); Anion Gap 3 mmol/L (6-16); Aspartate Aminotrans (AST/SGOT 41 U/L (12-37); Bilirubin, Total 0.5 mg/dL (0.1-1.0); Blood Urea Nitrogen 12 mg/dL (8-24); Bun/Creatinine Ratio 36.4 (12.0-20.0); CO2, Blood 28 mmol/L (21-32); Calcium, Blood 8.2 mg/dL (8.5-10.1); Chloride, Blood 106 mmol/L (98-108); Creatinine, Blood 0.33 mg/dL (0.40-1.00); Globulin, Blood 4.7 g/dL (2.2-4.0); Glomerular Filtration Rate >60 (60-); Glucose, Blood 71 mg/dL (70-99); Potassium, Blood 3.7 mmol/L (3.5-5.5); Sodium, Blood 137 mmol/L (136-145); Total Protein, Blood 6.8 g/dL (6.4-8.2)
== END 2020-06-20 13:28 | disposition home or self-care (01) ==
LOC: ER 09:53
PROVIDERS: Emergency Medicine
DX: R10.9 Unspecified abdominal pain (principal); F17.220 Nicotine dependence, chewing tobacco, uncomplicated; Z79.899 Other long term (current) drug therapy
CPT/HCPCS: 36415; 49083; 80053; 82652; 83970; 84443; 85025; 85610; 99284-25

== ENCOUNTER 2020-06-27 09:57 | Emergency (ER) | payer BC ==
[~2020-06-27] VITALS: Ht 160 cm; Wt 59.0 kg
[2020-06-27 10:58] LABS: BASOPHILS ABSOLUTE AUTO 0.08 K/mm3 (0.00-0.23); BASOPHILS PERCENT AUTO 1 % (0-2); EOSINOPHILS ABSOLUTE AUTO 0.16 K/mm3 (0.00-0.68); EOSINOPHILS PERCENT AUTO 2 % (0-6); Hematocrit 35.8 % (33.0-51.0); IMMATURE GRAN ABSOLUTE AUTO 0.02 K/mm3 (0.00-0.10); IMMATURE GRAN PERCENT AUTO 0 % (0-1); LYMPHOCYTES ABSOLUTE AUTO 1.14 K/mm3 (0.84-5.20); LYMPHOCYTES PERCENT AUTO 16 % (21-46); MONOCYTES ABSOLUTE AUTO 1.03 K/mm3 (0.16-1.47); MONOCYTES PERCENT AUTO 15 % (4-13); Mean Corpuscular HGB 31.4 pg (26.0-34.0); Mean Corpuscular HGB Conc 33.5 g/dL (31.5-36.5); Mean Corpuscular Volume 94 fL (80-100); Mean Platelet Volume 8.8 fL (9.1-12.4); NEUTROPHILS ABSOLUTE AUTO 4.67 K/mm3 (1.96-9.15); NEUTROPHILS PERCENT AUTO 66 % (41-73); Platelet Count 321 K/mm3 (150-400); RDW Coefficient Variation 13.8 % (11.7-14.2); RDW Standard Deviation 47.4 fL (35.1-46.3); Red Blood Cell Count 3.82 M/mm3 (3.80-5.20)
[2020-06-27 11:14] LABS: Alanine Aminotransfer (ALT/SGP 28 U/L (12-78); Albumin, Blood 2.3 g/dL (3.4-5.0); Albumin/Globulin Ratio 0.5 (0.8-1.8); Alk Phos 97 U/L (50-136); Anion Gap 6 mmol/L (6-16); Aspartate Aminotrans (AST/SGOT 39 U/L (12-37); Bilirubin, Total 0.4 mg/dL (0.1-1.0); Blood Urea Nitrogen 15 mg/dL (8-24); CO2, Blood 27 mmol/L (21-32); Calcium, Blood 8.2 mg/dL (8.5-10.1); Chloride, Blood 104 mmol/L (98-108); Creatinine, Blood 0.37 mg/dL (0.40-1.00); Glomerular Filtration Rate >60 (60-); Glucose, Blood 78 mg/dL (70-99); International Normalized Ratio 1.06; Potassium, Blood 3.3 mmol/L (3.5-5.5); Prothrombin Time Results 11.3 Sec (9.7-11.5); Sodium, Blood 137 mmol/L (136-145); Total Protein, Blood 7.3 g/dL (6.4-8.2)
== END 2020-06-27 11:16 | disposition home or self-care (01) ==
LOC: ER 09:57
PROVIDERS: Emergency Medicine
DX: K72.90 Hepatic failure, unspecified without coma (principal); Z79.899 Other long term (current) drug therapy
CPT/HCPCS: 36415; 80053; 85025; 85610; 85730; 99284

== ENCOUNTER 2020-06-30 13:39 | Day surgery (SDC) | payer BC | END 2020-06-30 22:57 | disposition home or self-care (01) | LOC: US 13:39 | DX: K70.31 Alcoholic cirrhosis of liver with ascites (principal); K72.90 Hepatic failure, unspecified without coma | CPT/HCPCS: 49083 ==

== ENCOUNTER → 2020-09-16 | Outpatient (CLI) | payer BC | END | disposition home or self-care (01) | LOC: LAB SHORT 16:30 → LAB 16:30 | DX: N39.0 Urinary tract infection, site not specified (principal) | CPT/HCPCS: 87086 ==

== ENCOUNTER → 2022-03-01 | Outpatient (CLI) | payer BC ==
[~2022-03-01] MED LIST changes: +CALCIUM CARBON500 M2 PO; +FURO40 PO; +LEVSOD25 PO; +MULTIPLE VITAM1 EACH PO; +POTA10T PO
[2022-03-01 19:37] LABS: Alanine Aminotransfer (ALT/SGP 28 U/L (12-78); Albumin, Blood 3.8 g/dL (3.4-5.0); Alk Phos 93 U/L (50-136); Aspartate Aminotrans (AST/SGOT 27 U/L (12-37); Bilirubin, Direct <0.1 mg/dL (0.0-0.3); Bilirubin, Indirect Unable to Calculate mg/dL (0.1-0.7); Bilirubin, Total 0.3 mg/dL (0.1-1.0); Free Thyroxine 0.77 ng/dL (0.70-1.60); Total Protein, Blood 7.8 g/dL (6.4-8.2); Triiodothyronine, Free 2.43 pg/mL (2.18-3.98)
== END | disposition home or self-care (01) ==
LOC: LAB 17:44 → LAB SHORT 17:44
PROVIDERS: Hospitalist
DX: E03.9 Hypothyroidism, unspecified (principal); K70.31 Alcoholic cirrhosis of liver with ascites
CPT/HCPCS: 80076; 84439; 84443; 84481